=== PATIENT | female | born 1940 | race American Indian/Alaskan Native ===

== ENCOUNTER 2017-10-14 08:17 | Inpatient (IN) | payer MEDICARE ==
[2017-10-14] MEDS ORDERED: NACL 0.9% 1000 ML 1,000 ML ONE (08:50)
[2017-10-14] MEDS ORDERED: NACL 0.9% 1000 ML 1,000 ML IV ONE ×2 (09:10→11:16)
[2017-10-14 09:59] LABS: Hematocrit 33.9 % (30.3-42.9); Mean Corpuscular HGB Conc 32 % (30-34); Mean Corpuscular Hemoglobin 32 pg (28-32); Mean Corpuscular Volume 98 fl (79-97); Platelet Count 135 K/mm3 (140-440); Red Blood Count 3.47 M/mm3 (3.65-5.03); Red Cell Distribution Width 14.6 % (13.2-15.2)
[2017-10-14 10:14] LABS: Calcium 7.3 mg/dL (8.4-10.2)
[2017-10-14] MEDS ORDERED: ZOFRAN IV ONE (10:36)
[2017-10-14] MEDS ORDERED: D50W (25GM) Syringe IV PRN ×3 (10:36→11:44)
[2017-10-14] MEDS ORDERED: SODIUM CHLORIDE FLUSH SYRINGE 10 ML IV NR (11:00)
[2017-10-14] MEDS ORDERED: D5W/0.45% NACL/KCL 20 MEQ 20 MEQ/1,000 ML BAG IV SCH (11:00)
--- NOTE | 2017-10-14 11:38 | Emergency Department Report ---
ED General Adult HPI - General Chief complaint: Hyperglycemia Stated complaint: HYPERGLYCEMIA Time Seen by Provider: 10/14/17 09:09 Source: patient, family, EMS Mode of arrival: Stretcher Limitations: No Limitations - History of Present Illness Initial comments: Patient is a 76-year-old female who presents with weakness and hyperglycemia. Patient states that the last week heart she was weaned off of her insulin. 3 days ago she was seen at another ER for hyperglycemia she was given IV fluids and discharged home. Patient's daughter brought her in today because of increased weakness patient feels as though she was going to pass out. Patient is denying any current nausea vomiting however she did vomit several times yesterday. Patient denies chest pain fever cough dysuria diarrhea so throat at this time. Patient is only on metformin currently for her diabetes. -: Gradual, week(s) (1) Severity scale (0 -10): 0 Associated Symptoms: malaise, nausea/vomiting, weakness. denies: confusion, chest pain, cough, headaches, rash, seizure, shortness of breath, syncope - Related Data Home Medications Medication Instructions Recorded Confirmed Last Taken Aspirin [Aspirin BABY CHEW TAB] 81 mg PO DAILY 12/25/13 10/14/17 10/13/17 Clopidogrel Bisulfate [Clopidogrel] 75 mg PO DAILY 12/25/13 10/14/17 10/13/17 Hydrochlorothiazide [HCTZ] 25 mg PO DAILY 12/25/13 10/14/17 10/13/17 Metoprolol [Lopressor TAB] 50 mg PO BID 12/25/13 10/14/17 10/13/17 Doxazosin Mesylate [Cardura] 2 mg PO BID 10/14/17 10/14/17 10/13/17 ISOSORBIDE MONOnitrate [Imdur ER] 60 mg PO QDAY 10/14/17 10/14/17 10/13/17 Levothyroxine [Synthroid] 100 mcg PO DAILY 10/14/17 10/14/17 10/13/17 Metformin HCl [Glucophage] 1,000 mg PO QDAY 10/14/17 10/14/17 10/13/17 NIFEdipine [Nifedipine ER] 60 mg PO QDAY 10/14/17 10/14/17 10/13/17 Potassium Chloride [K-Dur] 20 meq PO DAILY 10/14/17 10/14/17 10/13/17 Simvastatin [Zocor TAB] 20 mg PO DAILY 10/14/17 10/14/17 10/13/17 Valsartan [Diovan] 320 mg PO DAILY 10/14/17 10/14/17 10/13/17 Allergies Allergy/AdvReac Type Severity Reaction Status Date / Time codeine Allergy Vomiting Verified 06/18/14 14:59 ED Review of Systems ROS: Stated complaint: HYPERGLYCEMIA Other details as noted in HPI Comment: All other systems reviewed and negative ED Past Medical Hx - Past Medical History Previous Medical History?: Yes Hx Hypertension: Yes Hx Heart Attack/AMI: Yes Hx Diabetes: Yes Hx GERD: Yes Additional medical history: Hypothyroidism, coronary artery disease - Surgical History Past Surgical History?: Yes Hx Open Heart Surgery: Yes (2007) Additional Surgical History: Hysterectomy - Social History Smoking Status: Never Smoker Substance Use Type: None - Medications Home Medications: Home Medications Medication Instructions Recorded Confirmed Last Taken Type Aspirin [Aspirin BABY CHEW TAB] 81 mg PO DAILY 12/25/13 10/14/17 10/13/17 History Clopidogrel Bisulfate [Clopidogrel] 75 mg PO DAILY 12/25/13 10/14/17 10/13/17 History Hydrochlorothiazide [HCTZ] 25 mg PO DAILY 12/25/13 10/14/17 10/13/17 History Metoprolol [Lopressor TAB] 50 mg PO BID 12/25/13 10/14/17 10/13/17 History Doxazosin Mesylate [Cardura] 2 mg PO BID 10/14/17 10/14/17 10/13/17 History ISOSORBIDE MONOnitrate [Imdur ER] 60 mg PO QDAY 10/14/17 10/14/17 10/13/17 History Levothyroxine [Synthroid] 100 mcg PO DAILY 10/14/17 10/14/17 10/13/17 History Metformin HCl [Glucophage] 1,000 mg PO QDAY 10/14/17 10/14/17 10/13/17 History NIFEdipine [Nifedipine ER] 60 mg PO QDAY 10/14/17 10/14/17 10/13/17 History Potassium Chloride [K-Dur] 20 meq PO DAILY 10/14/17 10/14/17 10/13/17 History Simvastatin [Zocor TAB] 20 mg PO DAILY 10/14/17 10/14/1718 History Valsartan [Diovan] 320 mg PO DAILY 10/14/17 10/14/17 10/13/17 History ED Physical Exam - General Limitations: No Limitations General appearance: alert, in no apparent distress, other (patient appears pale) - Head Head exam: Present: atraumatic, normocephalic - Eye Eye exam: Present: normal appearance - ENT ENT exam: Present: mucous membranes moist - Neck Neck exam: Present: normal inspection - Respiratory Respiratory exam: Present: normal lung sounds bilaterally. Absent: respiratory distress, wheezes, rales, rhonchi, stridor - Cardiovascular Cardiovascular Exam: Present: regular rate, normal rhythm, normal heart sounds. Absent: systolic murmur, diastolic murmur, rubs, gallop - GI/Abdominal GI/Abdominal exam: Present: soft, normal bowel sounds. Absent: distended, guarding, rebound - Extremities Exam Extremities exam: Present: normal inspection - Back Exam Back exam: Present: normal inspection - Neurological Exam Neurological exam: Present: alert, oriented X3 - Psychiatric Psychiatric exam: Present: normal affect, normal mood - Skin Skin exam: Present: warm, dry, intact, normal color. Absent: rash ED Course Vital Signs 10/14/17 10/14/17 10/14/17 08:34 08:35 08:40 Temperature Pulse Rate 67 67 Respiratory 17 14 Rate Blood Pressure Blood Pressure [Left] O2 Sat by Pulse Oximetry 10/14/17 10/14/17 10/14/17 08:45 09:01 09:05 Temperature 97.5 F L Pulse Rate 68 70 73 Respiratory 20 14 16 Rate Blood Pressure 96/38 93/44 Blood Pressure 94/40 [Left] O2 Sat by Pulse 99 Oximetry 10/14/17 10/14/17 09:15 09:30 Temperature Pulse Rate 57 L 65 Respiratory 13 16 Rate Blood Pressure 82/34 67/37 Blood Pressure [Left] O2 Sat by Pulse Oximetry - Reevaluation(s) Reevaluation #1: 10/14/17 12:57 Patient is a 76-year-old female who is presenting with hypoglycemia. Patient noted to be in DKA with a pH of 7.1. Patient's blood pressure only had minimal response to IV fluids. Patient will be started on dopamine central line in place in the right IJ please see procedure note. Patient also started on insulin drip and will continue fluids. Patient is noted to have a low sodium level on labs this will be addressed with the IV fluids patient is alert and oriented is handling secretions and her airway fine. I do not believe the patient needs to be intubated at this time. Patient will be admitted to Dr. Michele GARNETT. - Central Line Placement Right IJ Time Out Performed: Yes Patient Placed on Monitor/Pulse Ox: Yes MD Prep: mask, gown, gloves Central Line Prep: Chlorhexidine scrub, sterile drapes applied Local Anesthesia Used: Lidocaine 1% Ultrasound Used for Placement: Yes Central Line Lumen Inserted: triple Bloods Obtained for Lab: Yes Central Line Position: good blood return, all ports aspirated, flus, other Dressing Applied: Tegaderm Patient Tolerated Procedure: no complications Complications: none ED Medical Decision Making - Lab Data Result diagrams: 10/14/17 09:37 10/14/17 Unknown Lab Results 10/14/17 10/14/17 10/14/17 Range/Units 08:42 09:37 09:37 WBC 9.1 (4.5-11.0) K/mm3 RBC 3.47 L (3.65-5.03) M/mm3 Hgb 11.0 (10.1-14.3) gm/dl Hct 33.9 (30.3-42.9) % MCV 98 H (79-97) fl MCH 32 (28-32) pg MCHC 32 (30-34) % RDW 14.6 (13.2-15.2) % Plt Count 135 L (140-440) K/mm3 Add Manual Diff Complete Total Counted 100 Seg Neutrophils % Wheel [employer] Operator Seg Neuts % (Manual) 92.0 H (40.0-70.0) % Band Neutrophils % 3.0 % Lymphocytes % (Manual) 4.0 L (13.4-35.0) % Reactive Lymphs % (Man) 0 % Monocytes % (Manual) 1.0 (0.0-7.3) % Eosinophils % (Manual) 0 (0.0-4.3) % Basophils % (Manual) 0 (0.0-1.8) % Metamyelocytes % 0 % Myelocytes % 0 % Promyelocytes % 0 % Blast Cells % 0 % Nucleated RBC % Not Reportable Seg Neutrophils # Man 8.4 H (1.8-7.7) K/mm3 Band Neutrophils # 0.3 K/mm3 Lymphocytes # (Manual) 0.4 L (1.2-5.4) K/mm3 Abs React Lymphs (Man) 0.0 K/mm3 Monocytes # (Manual) 0.1 (0.0-0.8) K/mm3 Eosinophils # (Manual) 0.0 (0.0-0.4) K/mm3 Basophils # (Manual) 0.0 (0.0-0.1) K/mm3 Metamyelocytes # 0.0 K/mm3 Myelocytes # 0.0 K/mm3 Promyelocytes # 0.0 K/mm3 Blast Cells # 0.0 K/mm3 WBC Morphology Not Reportable Hypersegmented Neuts Not Reportable Hyposegmented Neuts Not Reportable Hypogranular Neuts Not Reportable Smudge Cells Not Reportable Toxic Granulation Not Reportable Toxic Vacuolation Not Reportable Dohle Bodies Not Reportable Pelger-Huet Anomaly Not Reportable [place] Rods Not Reportable Platelet Estimate Not Reportable Clumped Platelets Not Reportable Plt Clumps, EDTA Not Reportable Large Platelets Not Reportable Giant Platelets Not Reportable Platelet Satelliting Not Reportable Plt Morphology Comment Not Reportable RBC Morphology Not Reportable Dimorphic RBCs Not Reportable Polychromasia Not Reportable Hypochromasia Not Reportable Poikilocytosis Not Reportable Anisocytosis Few Microcytosis Not Reportable Macrocytosis Not Reportable Spherocytes Not Reportable Pappenheimer Bodies Not Reportable Sickle Cells Not Reportable Target Cells Not Reportable Tear Drop Cells Not Reportable Ovalocytes Not Reportable Helmet Cells Not Reportable Heredia-Coppell Bodies Not Reportable [place] Rings Not Reportable [place] Cells Not Reportable Bite Cells Not Reportable Crenated Cell Not Reportable Elliptocytes Not Reportable Acanthocytes (Spur) Not Reportable Rouleaux Not Reportable Hemoglobin C Crystals Not Reportable Schistocytes Not Reportable Malaria parasites Not Reportable [place] Bodies Not Reportable Hem Pathologist Commnt No VBG pH (7.320-7.420) Sodium 115 L* (137-145) mmol/L Potassium 5.8 H (3.6-5.0) mmol/L Chloride 75.2 L (98-107) mmol/L Carbon Dioxide 12 L (22-30) mmol/L Anion Gap 34 mmol/L BUN 54 H (7-17) mg/dL Creatinine 2.5 H (0.7-1.2) mg/dL Estimated GFR 23 ml/min BUN/Creatinine Ratio 22 % Glucose 742 H* (65-100) mg/dL POC Glucose > 500 H (70-105) Calcium 7.3 L (8.4-10.2) mg/dL Phosphorus (2.5-4.5) mg/dL Magnesium (1.7-2.3) mg/dL 10/14/17 10/14/17 10/14/17 Range/Units 09:37 12:42 Unknown WBC (4.5-11.0) K/mm3 RBC (3.65-5.03) M/mm3 Hgb (10.1-14.3) gm/dl Hct (30.3-42.9) % MCV (79-97) fl MCH (28-32) pg MCHC (30-34) % RDW (13.2-15.2) % Plt Count (140-440) K/mm3 Add Manual Diff Total Counted Seg Neutrophils % Seg Neuts % (Manual) (40.0-70.0) % Band Neutrophils % % Lymphocytes % (Manual) (13.4-35.0) % Reactive Lymphs % (Man) % Monocytes % (Manual) (0.0-7.3) % Eosinophils % (Manual) (0.0-4.3) % Basophils % (Manual) (0.0-1.8) % Metamyelocytes % % Myelocytes % % Promyelocytes % % Blast Cells % % Nucleated RBC % Seg Neutrophils # Man (1.8-7.7) K/mm3 Band Neutrophils # K/mm3 Lymphocytes # (Manual) (1.2-5.4) K/mm3 Abs React Lymphs (Man) K/mm3 Monocytes # (Manual) (0.0-0.8) K/mm3 Eosinophils # (Manual) (0.0-0.4) K/mm3 Basophils # (Manual) (0.0-0.1) K/mm3 Metamyelocytes # K/mm3 Myelocytes # K/mm3 Promyelocytes # K/mm3 Blast Cells # K/mm3 WBC Morphology Hypersegmented Neuts Hyposegmented Neuts Hypogranular Neuts Smudge Cells Toxic Granulation Toxic Vacuolation Dohle Bodies Pelger-Huet Anomaly Marco Antonio Rods Platelet Estimate Clumped Platelets Plt Clumps, EDTA Large Platelets Giant Platelets Platelet Satelliting Plt Morphology Comment RBC Morphology Dimorphic RBCs Polychromasia Hypochromasia Poikilocytosis Anisocytosis Microcytosis Macrocytosis Spherocytes Pappenheimer Bodies Sickle Cells Target Cells Tear Drop Cells Ovalocytes Helmet Cells Heredia-Coppell Bodies [place] Rings Estela Cells Bite Cells Crenated Cell Elliptocytes Acanthocytes (Spur) Rouleaux Hemoglobin C Crystals Schistocytes Malaria parasites [place] Bodies Hem Pathologist Commnt VBG pH 7.199 L* (7.320-7.420) Sodium (137-145) mmol/L Potassium (3.6-5.0) mmol/L Chloride (98-107) mmol/L Carbon Dioxide (22-30) mmol/L Anion Gap mmol/L BUN (7-17) mg/dL Creatinine (0.7-1.2) mg/dL Estimated GFR ml/min BUN/Creatinine Ratio % Glucose (65-100) mg/dL POC Glucose > 500 H (70-105) Calcium (8.4-10.2) mg/dL Phosphorus 6.20 H (2.5-4.5) mg/dL Magnesium 1.40 L (1.7-2.3) mg/dL 10/14/17 Range/Units Unknown WBC (4.5-11.0) K/mm3 RBC (3.65-5.03) M/mm3 Hgb (10.1-14.3) gm/dl Hct (30.3-42.9) % MCV (79-97) fl MCH (28-32) pg MCHC (30-34) % RDW (13.2-15.2) % Plt Count (140-440) K/mm3 Add Manual Diff Total Counted Seg Neutrophils % Seg Neuts % (Manual) (40.0-70.0) % Band Neutrophils % % Lymphocytes % (Manual) (13.4-35.0) % Reactive Lymphs % (Man) % Monocytes % (Manual) (0.0-7.3) % Eosinophils % (Manual) (0.0-4.3) % Basophils % (Manual) (0.0-1.8) % Metamyelocytes % % Myelocytes % % Promyelocytes % % Blast Cells % % Nucleated RBC % Seg Neutrophils # Man (1.8-7.7) K/mm3 Band Neutrophils # K/mm3 Lymphocytes # (Manual) (1.2-5.4) K/mm3 Abs React Lymphs (Man) K/mm3 Monocytes # (Manual) (0.0-0.8) K/mm3 Eosinophils # (Manual) (0.0-0.4) K/mm3 Basophils # (Manual) (0.0-0.1) K/mm3 Metamyelocytes # K/mm3 Myelocytes # K/mm3 Promyelocytes # K/mm3 Blast Cells # K/mm3 WBC Morphology Hypersegmented Neuts Hyposegmented Neuts Hypogranular Neuts Smudge Cells Toxic Granulation Toxic Vacuolation Dohle Bodies Pelger-Huet Anomaly Marco Antonio Rods Platelet Estimate Clumped Platelets Plt Clumps, EDTA Large Platelets Giant Platelets Platelet Satelliting Plt Morphology Comment RBC Morphology Dimorphic RBCs Polychromasia Hypochromasia Poikilocytosis Anisocytosis Microcytosis Macrocytosis Spherocytes Pappenheimer Bodies Sickle Cells Target Cells Tear Drop Cells Ovalocytes Helmet Cells Heredia-Coppell Bodies [place] Rings Estela Cells Bite Cells Crenated Cell Elliptocytes Acanthocytes (Spur) Rouleaux Hemoglobin C Crystals Schistocytes Malaria parasites [place] Bodies Hem Pathologist Commnt VBG pH (7.320-7.420) Sodium 119 L* (137-145) mmol/L Potassium 6.5 H* (3.6-5.0) mmol/L Chloride 79.4 L (98-107) mmol/L Carbon Dioxide 10 L (22-30) mmol/L Anion Gap 34 mmol/L BUN 57 H (7-17) mg/dL Creatinine 2.5 H (0.7-1.2) mg/dL Estimated GFR 23 ml/min BUN/Creatinine Ratio 23 % Glucose 723 H* (65-100) mg/dL POC Glucose (70-105) Calcium 6.8 L (8.4-10.2) mg/dL Phosphorus (2.5-4.5) mg/dL Magnesium (1.7-2.3) mg/dL - EKG Data EKG shows normal: sinus rhythm (rate is 67), axis (normal), intervals (normal), QRS complexes (normal), ST-T waves (normal) Rate: normal Critical care attestation.: If time is entered above; I have spent that time in minutes in the direct care of this critically ill patient, excluding procedure time. ED Disposition Clinical Impression: DKA (diabetic ketoacidoses), Shock, Dehydration, Hyponatremia Disposition: OP ADMIT IP TO THIS HOSP Is pt being admited?: Yes Does the pt Need Aspirin: No Condition: Serious
[2017-10-14 11:41] LABS: Band Neutrophils # (Manual) 0.3 K/mm3; Basophils % (Manual) 0 % (0.0-1.8); Eosinophils % (Manual) 0 % (0.0-4.3); Total Cells Counted 100
[2017-10-14 11:42] LABS: Anisocytosis Few
--- NOTE | 2017-10-14 11:42 | History and Physical Report ---
History of Present Illness Chief complaint: My blood sugar is high, and i feel sick History of present illness: 76 YO Female with DM, HTN, [place], GERD, Hypothyroidism,CAD S/P CABG presents to ED for evaluation. Pt states that her blood glucose has been high for the past 3 days. Pt is confused and unable to provide detailed history, but history is provided by daughter, who is at bedside during exam and interview. As per daughter, patient has recently started a new diet, and has not been taking her medication as prescribed. As per daughter, the patient was feeling weak and dizzy today and felt like she was going to pass out. No reports of fever, chills , CP, Palpitation, NVD, Syncope, BRBPR, Productive cough, leg swelling, calf pain, prolonged travel/immobility, individual/family history of DVT/PE. Pt seen and evaluated in ED and found to have DKA, complicated by hypotension. Pt initiated on IV pressor support and admitted to ICU. Past History Past Medical History: acute [place], CAD, diabetes, GERD, hypertension, hypothyroidism Past Surgical History: CABG Social history: . denies: smoking, alcohol abuse, prescription drug abuse Family history: diabetes, hypertension Medications and Allergies Allergies Allergy/AdvReac Type Severity Reaction Status Date / Time codeine Allergy Vomiting Verified 06/18/14 14:59 Home Medications Medication Instructions Recorded Confirmed Last Taken Type Aspirin [Aspirin BABY CHEW TAB] 81 mg PO DAILY 12/25/13 10/14/17 10/13/17 History Clopidogrel Bisulfate [Clopidogrel] 75 mg PO DAILY 12/25/13 10/14/17 10/13/17 History Hydrochlorothiazide [HCTZ] 25 mg PO DAILY 12/25/13 10/14/17 10/13/17 History Metoprolol [Lopressor TAB] 50 mg PO BID 12/25/13 10/14/17 10/13/17 History Doxazosin Mesylate [Cardura] 2 mg PO BID 10/14/17 10/14/17 10/13/17 History ISOSORBIDE MONOnitrate [Imdur ER] 60 mg PO QDAY 10/14/17 10/14/17 10/13/17 History Levothyroxine [Synthroid] 100 mcg PO DAILY 10/14/17 10/14/17 10/13/17 History Metformin HCl [Glucophage] 1,000 mg PO QDAY 10/14/17 10/14/17 10/13/17 History NIFEdipine [Nifedipine ER] 60 mg PO QDAY 10/14/17 10/14/17 10/13/17 History Potassium Chloride [K-Dur] 20 meq PO DAILY 10/14/17 10/14/17 10/13/17 History Simvastatin [Zocor TAB] 20 mg PO DAILY 10/14/17 10/14/17 10/13/17 History Valsartan [Diovan] 320 mg PO DAILY 10/14/17 10/14/17 10/13/17 History Active Meds: Active Medications Dextrose (D50w (25gm) Syringe) 0 ml IV PRN PRN PRN Reason: Hypoglycemia Potassium Chloride/Dextrose/Sod Cl (D5w/0.45% Nacl/Kcl 20 Meq) 20 meq in 1,000 mls @ 125 mls/hr IV DIRECT RAFFAELE Insulin Human Regular 100 (units/ Sodium Chloride) 100 mls @ 1 mls/hr IV TITR RAFFAELE; 1 UNITS/HR PRN Reason: Protocol Sodium Chloride (Nacl 0.9% 1000 Ml) 1,000 mls @ 250 mls/hr IV ONCE ONE Stop: 10/14/17 15:15 Sodium Chloride (Sodium Chloride Flush Syringe 10 Ml) 10 ml IV PRN NR Stop: 10/24/17 10:59 Review of Systems ROS unobtainable: due to mental status Exam - Constitutional Vitals: Temp Pulse Resp BP Pulse Ox 97.5 F L 65 16 67/37 99 10/14/17 09:05 10/14/17 09:30 10/14/17 09:30 10/14/17 09:30 10/14/17 09:05 General appearance: Present: mild distress - EENT Eyes: Present: PERRL ENT: hearing intact, clear oral mucosa - Neck Neck: Present: supple, normal ROM - Respiratory Respiratory effort: normal Respiratory: bilateral: diminished - Cardiovascular Heart Sounds: Present: S1 & S2. Absent: rub, click - Extremities Extremities: pulses symmetrical, No edema Peripheral Pulses: within normal limits - Abdominal General gastrointestinal: Present: soft, non-tender, non-distended, normal bowel sounds Female genitourinary: Present: normal - Integumentary Integumentary: Present: clear, dry, clammy, decreased turgor - Musculoskeletal Musculoskeletal: generalized weakness - Psychiatric Psychiatric: no intact judgment & insight, no memory intact - Neurologic Neurologic: no focal deficits, no gait normal Results - Labs CBC & Chem 7: 10/14/17 09:37 10/14/17 Unknown Labs: Abnormal lab results 10/14/17 10/14/17 10/14/17 Range/Units 08:42 09:37 09:37 RBC 3.47 L (3.65-5.03) M/mm3 MCV 98 H (79-97) fl Plt Count 135 L (140-440) K/mm3 VBG pH (7.320-7.420) Sodium 115 L* (137-145) mmol/L Potassium 5.8 H (3.6-5.0) mmol/L Chloride 75.2 L (98-107) mmol/L Carbon Dioxide 12 L (22-30) mmol/L BUN 54 H (7-17) mg/dL Creatinine 2.5 H (0.7-1.2) mg/dL Glucose 742 H* (65-100) mg/dL POC Glucose > 500 H (70-105) Calcium 7.3 L (8.4-10.2) mg/dL 10/14/17 Range/Units 09:37 RBC (3.65-5.03) M/mm3 MCV (79-97) fl Plt Count (140-440) K/mm3 VBG pH 7.199 L* (7.320-7.420) Sodium (137-145) mmol/L Potassium (3.6-5.0) mmol/L Chloride (98-107) mmol/L Carbon Dioxide (22-30) mmol/L BUN (7-17) mg/dL Creatinine (0.7-1.2) mg/dL Glucose (65-100) mg/dL POC Glucose (70-105) Calcium (8.4-10.2) mg/dL Assessment and Plan - Patient Problems (1) DKA (diabetic ketoacidoses) Current Visit: Yes Status: Acute Plan to address problem: DKA protocol: Insulin drip, serial bmp, monitor uop q shift, monitor anion gap, IVF resuscitation, The high probability of a clinically significant, sudden or life threatening deterioration of the [Endocrine, renal, cardiac, pulmonary] system(s) required my full and direct attention, intervention and personal management. The aggregate critical care time was [65] minutes. This time is in addition to time spent performing reported procedures but includes the following: [x] Data Review and interpretation [x] Patient assessment and monitoring of vital signs [x] Documentation [x] Medication orders and management (2) ARF (acute renal failure) Current Visit: Yes Status: Acute Plan to address problem: IVR resuscitation, monitor uop q shift, serial bmp to monitor serum creatnine, urine electrolytes, urine protein/creatnine ratio. (3) Hyponatremia syndrome Current Visit: Yes Status: Acute Plan to address problem: IVF resuscitation, repeat bmp (4) Encephalopathy Current Visit: Yes Status: Acute Plan to address problem: CT head, supportive care, neuro checks, aspiration precautions, (5) DVT prophylaxis Current Visit: Yes Status: Acute Plan to address problem: SCD to BLE while in bed
[2017-10-14] MEDS ORDERED: ALUM-MAG HYDROX-SIMETH 200-200-20MG/5ML PO PRN (11:44)
[2017-10-14] MEDS ORDERED: MILK OF MAGNESIA PO PRN (11:44)
[2017-10-14] MEDS ORDERED: DULCOLAX PR PRN (11:44)
[2017-10-14] MEDS ORDERED: PROVENTIL IH PRN (11:44)
[2017-10-14 12:00] LABS: Calcium 6.8 mg/dL (8.4-10.2); Magnesium 1.4 mg/dL (1.7-2.3)
[2017-10-14] MEDS ORDERED: NovoLIN R 100 UNITS in NACL 0.9% 99 ML IV SCH (12:00)
[2017-10-14] MEDS: NovoLIN R 100 UNITS in NACL 0.9% 99 ML IV SCH (12:59)
[2017-10-14] MEDS: INTROPIN DRIP 800 MG/D5W 250 ML 800 MG/250 ML BAG IV ONE ×2 (13:09→14:58)
[2017-10-14 15:27] LABS: Magnesium 1.5 mg/dL (1.7-2.3)
[2017-10-14 15:28] LABS: Calcium 6.6 mg/dL (8.4-10.2)
[2017-10-14 20:29] LABS: Calcium 7.1 mg/dL (8.4-10.2)
[2017-10-14 22:11] LABS: Bacteria,Urine 1+ /HPF (Negative); Bilirubin,Urine NEG (Negative); Blood,Urine SM (Negative); Color,Urine Straw (Yellow); Mucus,Urine FEW /HPF; Nitrite,Urine NEG (Negative); Protein,Urine <15 mg/dL mg/dL (Negative); Urobilinogen,Urine < 2.0 mg/dL (<2.0)
[2017-10-15 03:36] LABS: Calcium 7.6 mg/dL (8.4-10.2)
[2017-10-15] MEDS: NovoLIN R 100 UNITS in NACL 0.9% 99 ML IV SCH (05:23)
[2017-10-15] MEDS: INTROPIN DRIP 800 MG/D5W 250 ML 800 MG/250 ML BAG IV ONE (06:21)
[2017-10-15 06:26] LABS: Calcium 7.7 mg/dL (8.4-10.2)
[2017-10-15 10:59] LABS: BUN/Creatinine Ratio 26; Blood Urea Nitrogen 26 mg/dL (7-17); Calcium 7.6 mg/dL (8.4-10.2); Hemolysis Index 5
[2017-10-15] MEDS ORDERED: NS 0.45/KCL 20MEQ 20 MEQ/1,000 ML BAG IV SCH (13:00)
[2017-10-15 13:38] LABS: BUN/Creatinine Ratio 26; Blood Urea Nitrogen 23 mg/dL (7-17); Calcium 7.7 mg/dL (8.4-10.2); Hemolysis Index 6
--- NOTE | 2017-10-15 15:44 | Consultation ---
History of Present Illness - Reason for Consult Consult date: 10/15/17 DKA Requesting physician: JOSE ALBERTO FORRESTER - History of Present Illness 76 y/o female admitted with DKA. Anion Gap has closed. Past History Past Medical History: acute [place], CAD, diabetes, GERD, hypertension, hypothyroidism Past Surgical History: CABG Social history: . denies: smoking, alcohol abuse, prescription drug abuse Family history: diabetes, hypertension Medications and Allergies Allergies Allergy/AdvReac Type Severity Reaction Status Date / Time codeine Allergy Vomiting Verified 06/18/14 14:59 Home Medications Medication Instructions Recorded Confirmed Last Taken Type Aspirin [Aspirin BABY CHEW TAB] 81 mg PO DAILY 12/25/13 10/14/17 10/13/17 History Clopidogrel Bisulfate [Clopidogrel] 75 mg PO DAILY 12/25/13 10/14/17 10/13/17 History Hydrochlorothiazide [HCTZ] 25 mg PO DAILY 12/25/13 10/14/17 10/13/17 History Metoprolol [Lopressor TAB] 50 mg PO BID 12/25/13 10/14/17 10/13/17 History Doxazosin Mesylate [Cardura] 2 mg PO BID 10/14/17 10/14/17 10/13/17 History ISOSORBIDE MONOnitrate [Imdur ER] 60 mg PO QDAY 10/14/17 10/14/17 10/13/17 History Levothyroxine [Synthroid] 100 mcg PO DAILY 10/14/17 10/14/17 10/13/17 History Metformin HCl [Glucophage] 1,000 mg PO QDAY 10/14/17 10/14/17 10/13/17 History NIFEdipine [Nifedipine ER] 60 mg PO QDAY 10/14/17 10/14/17 10/13/17 History Potassium Chloride [K-Dur] 20 meq PO DAILY 10/14/17 10/14/17 10/13/17 History Simvastatin [Zocor TAB] 20 mg PO DAILY 10/14/17 10/14/17 10/13/17 History Valsartan [Diovan] 320 mg PO DAILY 10/14/17 10/14/17 10/13/17 History Active Meds: Active Medications Al Hydrox/Mg Hydrox/Simethicone (Alum-Mag Hydrox-Simeth [id number]/5ml) 30 ml PO Q4H PRN PRN Reason: Indigestion Albuterol (Proventil) 2.5 mg IH Q3HRT PRN PRN Reason: Shortness Of Breath Aspirin (Baby Aspirin) 81 mg PO DAILY [facility] Bisacodyl (Dulcolax) 10 mg OH QDAY PRN PRN Reason: constipation unrelieved by MOM Clopidogrel Bisulfate (Plavix) 75 mg PO DAILY [facility] Dextrose (D50w (25gm) Syringe) 0 ml IV PRN PRN PRN Reason: Hypoglycemia Dextrose (D50w (25gm) Syringe) 0 ml IV PRN PRN PRN Reason: Hypoglycemia Dextrose (D50w (25gm) Syringe) 0 ml IV ONCE PRN PRN Reason: Hypoglycemia Dopamine HCl/Dextrose (Intropin Drip 800 Mg/D5w 250 Ml) 800 mg in 250 mls @ 6.188 mls/hr IV TITR ONE; 2 MCG/KG/MIN PRN Reason: Protocol Stop: 10/16/17 04:24 Last Titration: 10/15/17 10:07 Dose: 0 mcg/kg/min, 0 mls/hr Potassium Chloride/Sodium Chloride (Ns 0.45/Kcl 20meq) 20 meq in 1,000 mls @ 125 mls/hr IV DIRECT [facility] Stop: 10/17/17 20:59 Insulin Aspart (Novolog) 0 units SUB-Q ACHS [facility] PRN Reason: Protocol Insulin Detemir (Levemir) 10 units SUB-Q QHS [facility] Levothyroxine Sodium (Synthroid) 100 mcg PO DAILY [facility] Magnesium Hydroxide (Milk Of Magnesia) 30 ml PO Q4H PRN PRN Reason: Constipation Miscellaneous Medication (Simvastatin) 20 mg PO DAILY [facility] Sodium Chloride (Sodium Chloride Flush Syringe 10 Ml) 10 ml IV PRN NR Stop: 10/24/17 10:59 Exam - Constitutional Vitals: Temp Pulse Resp BP Pulse Ox 97.5 F L 92 H 19 120/53 100 10/14/17 09:05 10/15/17 14:15 10/15/17 14:15 10/15/17 14:15 10/15/17 14:15 Results - Labs CBC & Chem 7: 10/14/17 09:37 10/15/17 Unknown Labs: Abnormal lab results 10/14/17 10/14/17 10/14/17 Range/Units 11:23 11:23 16:17 Sodium 119 L* (137-145) mmol/L Potassium 6.5 H* (3.6-5.0) mmol/L Chloride 79.4 L (98-107) mmol/L Carbon Dioxide 10 L (22-30) mmol/L BUN 57 H (7-17) mg/dL Creatinine 2.5 H (0.7-1.2) mg/dL Glucose 723 H* (65-100) mg/dL POC Glucose > 500 H (70-105) Calcium 6.8 L (8.4-10.2) mg/dL Phosphorus 6.20 H (2.5-4.5) mg/dL Magnesium 1.40 L (1.7-2.3) mg/dL 10/14/17 10/14/17 10/14/17 Range/Units 17:15 18:34 19:48 Sodium (137-145) mmol/L Potassium (3.6-5.0) mmol/L Chloride (98-107) mmol/L Carbon Dioxide (22-30) mmol/L BUN (7-17) mg/dL Creatinine (0.7-1.2) mg/dL Glucose (65-100) mg/dL POC Glucose > 500 H > 500 H 386 H (70-105) Calcium (8.4-10.2) mg/dL Phosphorus (2.5-4.5) mg/dL Magnesium (1.7-2.3) mg/dL 10/14/17 10/14/17 10/14/17 Range/Units 20:02 21:02 22:32 Sodium 124 L (137-145) mmol/L Potassium (3.6-5.0) mmol/L Chloride 86.8 L (98-107) mmol/L Carbon Dioxide 14 L (22-30) mmol/L BUN 55 H (7-17) mg/dL Creatinine 2.3 H (0.7-1.2) mg/dL Glucose 421 H (65-100) mg/dL POC Glucose 332 H 319 H (70-105) Calcium 7.1 L (8.4-10.2) mg/dL Phosphorus (2.5-4.5) mg/dL Magnesium (1.7-2.3) mg/dL 10/14/17 10/15/17 10/15/17 Range/Units 23:39 00:50 02:12 Sodium (137-145) mmol/L Potassium (3.6-5.0) mmol/L Chloride (98-107) mmol/L Carbon Dioxide (22-30) mmol/L BUN (7-17) mg/dL Creatinine (0.7-1.2) mg/dL Glucose (65-100) mg/dL POC Glucose 258 H 226 H 196 H (70-105) Calcium (8.4-10.2) mg/dL Phosphorus (2.5-4.5) mg/dL Magnesium (1.7-2.3) mg/dL 10/15/17 10/15/17 10/15/17 Range/Units 03:29 05:34 05:35 Sodium 130 L (137-145) mmol/L Potassium 3.4 L (3.6-5.0) mmol/L Chloride 93.2 L (98-107) mmol/L Carbon Dioxide (22-30) mmol/L BUN 35 H (7-17) mg/dL Creatinine 1.3 H (0.7-1.2) mg/dL Glucose 154 H (65-100) mg/dL POC Glucose 169 H 156 H (70-105) Calcium 7.7 L (8.4-10.2) mg/dL Phosphorus (2.5-4.5) mg/dL Magnesium (1.7-2.3) mg/dL 10/15/17 10/15/17 10/15/17 Range/Units 06:46 08:07 09:17 Sodium (137-145) mmol/L Potassium (3.6-5.0) mmol/L Chloride (98-107) mmol/L Carbon Dioxide (22-30) mmol/L BUN (7-17) mg/dL Creatinine (0.7-1.2) mg/dL Glucose (65-100) mg/dL POC Glucose 157 H 145 H 145 H (70-105) Calcium (8.4-10.2) mg/dL Phosphorus (2.5-4.5) mg/dL Magnesium (1.7-2.3) mg/dL 10/15/17 10/15/17 10/15/17 Range/Units 10:21 10:28 11:28 Sodium 134 L (137-145) mmol/L Potassium 3.4 L (3.6-5.0) mmol/L Chloride 96.0 L (98-107) mmol/L Carbon Dioxide (22-30) mmol/L BUN 26 H (7-17) mg/dL Creatinine (0.7-1.2) mg/dL Glucose 141 H (65-100) mg/dL POC Glucose 134 H 149 H (70-105) Calcium 7.6 L (8.4-10.2) mg/dL Phosphorus (2.5-4.5) mg/dL Magnesium (1.7-2.3) mg/dL 10/15/17 10/15/17 10/15/17 Range/Units 12:58 13:00 Unknown Sodium 135 L 130 L (137-145) mmol/L Potassium 3.2 L 3.5 L D (3.6-5.0) mmol/L Chloride 96.7 L 93.2 L (98-107) mmol/L Carbon Dioxide (22-30) mmol/L BUN 23 H 40 H (7-17) mg/dL Creatinine 1.5 H (0.7-1.2) mg/dL Glucose 125 H 175 H (65-100) mg/dL POC Glucose 132 H (70-105) Calcium 7.7 L 7.6 L (8.4-10.2) mg/dL Phosphorus (2.5-4.5) mg/dL Magnesium (1.7-2.3) mg/dL Assessment and Plan 76 y/o female with DKA, now resolving. 1. Please transition off insulin drip and start long acting insulin 2. Feed patient 3. If tolerates PO, should be stable for transfer to floor. CCT 31 minutes.
[2017-10-15] MEDS: NOVOLOG SUB-Q SCH ×2 (16:57→21:53)
--- NOTE | 2017-10-15 18:53 | Progress Note ---
Assessment and Plan Assessment and plan: 76 YO Female with DM, HTN, [place], GERD, Hypothyroidism,CAD S/P CABG presented with hyperglycemia, confusion, altered mental status and hypotension , states that she saw some physician on the outside who put her on a plant-based and not based diets and told her to stop her insulins. After which she became very hyperglycemic and encephalopathic and tired confused. (DKA (diabetic ketoacidoses) Currently improved, we'll attempt to wean her off insulin drip and transitioned to subcutaneous insulin, continue IV fluids ARF (acute renal failure)/ATN Improving, continue IV fluids Hypovolemic shock Has been weaned off pressors, continue IV fluids Hyponatremia syndrome Improving, continue IV fluids Acute metabolic Encephalopathy Was due to DKA and hypotension, improved HTN urgency BP meds were held for hypovolemia -resume BP meds as now hypertensive Hypokalemia continue to replete The high probability of a clinically significant, sudden or life threatening deterioration of the [endocrine, CV] system(s) required my full and direct attention, intervention and personal management. The aggregate critical care time was [44] minutes. This time is in addition to time spent performing reported procedures but includes the following: [] Data Review and interpretation [] Patient assessment and monitoring of vital signs [] Documentation [] Medication orders and management History Interval history: Review of systems Constitutional: No fevers, no malaise, no joint pains CVS: No chest pain, no orthopnea, no dyspnea on exertion, no pedal edema GI: No abdominal pain, no diarrhea, no vomiting, no constipation Respiratory: No shortness of breath, no wheezing, no coughing Hospitalist Physical - Physical exam Narrative exam: General.: Appears well, no distress, nontoxic HEENT: Moist mucous membranes, extraocular muscles intact, no lymphadenopathy Neck: supple Cardiac: S1-S2 heard Lungs: clear to auscultation bilaterally Abdomen: soft , nontender, nondistended, bowel sounds positive Extremities: no edema clubbing or cyanosis Skin: no rash or lesions Neurologic: no gross focal deficits Psych: appropriate behavior, appropriate mood, corporative, judgment intact - Constitutional Vitals: Temp Pulse Resp BP Pulse Ox 97.5 F L 86 19 101/48 98 10/14/17 09:05 10/15/17 14:31 10/15/17 14:31 10/15/17 14:31 10/15/17 14:31 General appearance: Present: mild distress Results - Labs CBC & Chem 7: 10/14/17 09:37 10/16/17 08:23 Labs: Laboratory Last Values WBC 9.1 K/mm3 (4.5-11.0) 10/14/17 09:37 RBC 3.47 M/mm3 (3.65-5.03) L 10/14/17 09:37 Hgb 11.0 gm/dl (10.1-14.3) 10/14/17 09:37 Hct 33.9 % (30.3-42.9) 10/14/17 09:37 MCV 98 fl (79-97) H 10/14/17 09:37 MCH 32 pg (28-32) 10/14/17 09:37 MCHC 32 % (30-34) 10/14/17 09:37 RDW 14.6 % (13.2-15.2) 10/14/17 09:37 Plt Count 135 K/mm3 (140-440) L 10/14/17 09:37 Add Manual Diff Complete 10/14/17 09:37 Total Counted 100 10/14/17 09:37 Seg Neutrophils % Banking Services Officer 10/14/17 09:37 Seg Neuts % (Manual) 92.0 % (40.0-70.0) H 10/14/17 09:37 Band Neutrophils % 3.0 % 10/14/17 09:37 Lymphocytes % (Manual) 4.0 % (13.4-35.0) L 10/14/17 09:37 Reactive Lymphs % (Man) 0 % 10/14/17 09:37 Monocytes % (Manual) 1.0 % (0.0-7.3) 10/14/17 09:37 Eosinophils % (Manual) 0 % (0.0-4.3) 10/14/17 09:37 Basophils % (Manual) 0 % (0.0-1.8) 10/14/17 09:37 Metamyelocytes % 0 % 10/14/17 09:37 Myelocytes % 0 % 10/14/17 09:37 Promyelocytes % 0 % 10/14/17 09:37 Blast Cells % 0 % 10/14/17 09:37 Nucleated RBC % Not Reportable 10/14/17 09:37 Seg Neutrophils # Man 8.4 K/mm3 (1.8-7.7) H 10/14/17 09:37 Band Neutrophils # 0.3 K/mm3 10/14/17 09:37 Lymphocytes # (Manual) 0.4 K/mm3 (1.2-5.4) L 10/14/17 09:37 Abs React Lymphs (Man) 0.0 K/mm3 10/14/17 09:37 Monocytes # (Manual) 0.1 K/mm3 (0.0-0.8) 10/14/17 09:37 Eosinophils # (Manual) 0.0 K/mm3 (0.0-0.4) 10/14/17 09:37 Basophils # (Manual) 0.0 K/mm3 (0.0-0.1) 10/14/17 09:37 Metamyelocytes # 0.0 K/mm3 10/14/17 09:37 Myelocytes # 0.0 K/mm3 10/14/17 09:37 Promyelocytes # 0.0 K/mm3 10/14/17 09:37 Blast Cells # 0.0 K/mm3 10/14/17 09:37 WBC Morphology Not Reportable 10/14/17 09:37 Hypersegmented Neuts Not Reportable 10/14/17 09:37 Hyposegmented Neuts Not Reportable 10/14/17 09:37 Hypogranular Neuts Not Reportable 10/14/17 09:37 Smudge Cells Not Reportable 10/14/17 09:37 Toxic Granulation Not Reportable 10/14/17 09:37 Toxic Vacuolation Not Reportable 10/14/17 09:37 Dohle Bodies Not Reportable 10/14/17 09:37 Pelger-Huet Anomaly Not Reportable 10/14/17 09:37 Marco Antonio Rods Not Reportable 10/14/17 09:37 Platelet Estimate Not Reportable 10/14/17 09:37 Clumped Platelets Not Reportable 10/14/17 09:37 Plt Clumps, EDTA Not Reportable 10/14/17 09:37 Large Platelets Not Reportable 10/14/17 09:37 Giant Platelets Not Reportable 10/14/17 09:37 Platelet Satelliting Not Reportable 10/14/17 09:37 Plt Morphology Comment Not Reportable 10/14/17 09:37 RBC Morphology Not Reportable 10/14/17 09:37 Dimorphic RBCs Not Reportable 10/14/17 09:37 Polychromasia Not Reportable 10/14/17 09:37 Hypochromasia Not Reportable 10/14/17 09:37 Poikilocytosis Not Reportable 10/14/17 09:37 Anisocytosis Few 10/14/17 09:37 Microcytosis Not Reportable 10/14/17 09:37 Macrocytosis Not Reportable 10/14/17 09:37 Spherocytes Not Reportable 10/14/17 09:37 Pappenheimer Bodies Not Reportable 10/14/17 09:37 Sickle Cells Not Reportable 10/14/17 09:37 Target Cells Not Reportable 10/14/17 09:37 Tear Drop Cells Not Reportable 10/14/17 09:37 Ovalocytes Not Reportable 10/14/17 09:37 Helmet Cells Not Reportable 10/14/17 09:37 [place] Bodies Not Reportable 10/14/17 09:37 [place] Rings Not Reportable 10/14/17 09:37 Estela Cells Not Reportable 10/14/17 09:37 Bite Cells Not Reportable 10/14/17 09:37 Crenated Cell Not Reportable 10/14/17 09:37 Elliptocytes Not Reportable 10/14/17 09:37 Acanthocytes (Spur) Not Reportable 10/14/17 09:37 Rouleaux Not Reportable 10/14/17 09:37 Hemoglobin C Crystals Not Reportable 10/14/17 09:37 Schistocytes Not Reportable 10/14/17 09:37 Malaria parasites Not Reportable 10/14/17 09:37 Nile Bodies Not Reportable 10/14/17 09:37 Hem Pathologist Commnt No 10/14/17 09:37 VBG pH 7.199 (7.320-7.420) L* 10/14/17 09:37 Sodium 130 mmol/L (137-145) L 10/15/17 Unknown Potassium 3.5 mmol/L (3.6-5.0) L D 10/15/17 Unknown Chloride 93.2 mmol/L (98-107) L 10/15/17 Unknown Carbon Dioxide 22 mmol/L (22-30) D 10/15/17 Unknown Anion Gap 18 mmol/L 10/15/17 Unknown BUN 40 mg/dL (7-17) H 10/15/17 Unknown Creatinine 1.5 mg/dL (0.7-1.2) H 10/15/17 Unknown Estimated GFR 41 ml/min 10/15/17 Unknown BUN/Creatinine Ratio 27 % 10/15/17 Unknown Glucose 175 mg/dL (65-100) H 10/15/17 Unknown POC Glucose 132 (70-105) H 10/15/17 12:58 Calcium 7.6 mg/dL (8.4-10.2) L 10/15/17 Unknown Phosphorus 6.40 mg/dL (2.5-4.5) H 10/14/17 14:44 Magnesium 1.50 mg/dL (1.7-2.3) L 10/14/17 14:44 Urine Color Straw (Yellow) 10/14/17 21:47 Urine Turbidity Clear (Clear) 10/14/17 21:47 Urine pH 5.0 (5.0-7.0) 10/14/17 21:47 Ur Specific [place] 1.008 (1.003-1.030) 10/14/17 21:47 Urine Protein <15 mg/dl mg/dL (Negative) 10/14/17 21:47 Urine Glucose (UA) >=500 mg/dL (Negative) 10/14/17 21:47 Urine Ketones Tr mg/dL (Negative) 10/14/17 21:47 Urine Blood Sm (Negative) 10/14/17 21:47 Urine Nitrite Neg (Negative) 10/14/17 21:47 Urine Bilirubin Neg (Negative) 10/14/17 21:47 Urine Urobilinogen < 2.0 mg/dL (<2.0) 10/14/17 21:47 Ur Leukocyte Esterase Neg (Negative) 10/14/17 21:47 Urine WBC (Auto) 1.0 /HPF (0.0-6.0) 10/14/17 21:47 Urine RBC (Auto) 1.0 /HPF (0.0-6.0) 10/14/17 21:47 Urine Bacteria (Auto) 1+ /HPF (Negative) 10/14/17 21:47 Urine Mucus Few /HPF 10/14/17 21:47
[2017-10-15] MEDS: LEVEMIR SUB-Q SCH (21:51)
[2017-10-16] MEDS: NOVOLOG SUB-Q SCH ×4 (09:19→22:10)
[2017-10-16 09:30] LABS: BUN/Creatinine Ratio 19; Blood Urea Nitrogen 15 mg/dL (7-17); Calcium 8.3 mg/dL (8.4-10.2); Hemolysis Index 14
[2017-10-16] MEDS ORDERED: NON-FORMULARY (Doxazosin Mesylate [Cardura] 2 MG) PO SCH (10:00)
[2017-10-16] MEDS ORDERED: NON-FORMULARY (Simvastatin 20 MG) PO SCH (10:00)
[2017-10-16] MEDS ORDERED: NON-FORMULARY (Valsartan [Diovan] 320 MG) PO SCH (10:00)
[2017-10-16] MEDS: PLAVIX PO SCH (10:46)
[2017-10-16] MEDS: PROCARDIA XL PO SCH (10:46)
[2017-10-16] MEDS: SYNTHROID PO SCH (10:46)
[2017-10-16] MEDS: BABY ASPIRIN PO SCH (10:46)
[2017-10-16] MEDS: HCTZ PO SCH (10:46)
[2017-10-16] MEDS: CARDURA PO SCH ×2 (10:47→22:09)
[2017-10-16] MEDS: LOPRESSOR PO SCH ×2 (10:47→22:10)
[2017-10-16] MEDS: IMDUR PO SCH (10:47)
[2017-10-16] MEDS: DIOVAN PO SCH (11:03)
[2017-10-16] MEDS ORDERED: K-DUR PO ONE (12:30)
[2017-10-16] MEDS ORDERED: ROBITUSSIN PO PRN (16:30)
[2017-10-16] MEDS ORDERED: ZOCOR PO SCH (22:00)
[2017-10-16] MEDS: LEVEMIR SUB-Q SCH (22:09)
[2017-10-17 06:13] LABS: BUN/Creatinine Ratio 11; Blood Urea Nitrogen 9 mg/dL (7-17); Calcium 8.2 mg/dL (8.4-10.2); Hemolysis Index 6
[2017-10-17 08:56] VITALS: BP 141/74
[2017-10-17] MEDS: NOVOLOG SUB-Q SCH ×2 (09:39→13:09)
[2017-10-17] MEDS: CARDURA PO SCH (09:40)
[2017-10-17] MEDS: BABY ASPIRIN PO SCH (09:40)
[2017-10-17] MEDS: IMDUR PO SCH (09:41)
[2017-10-17] MEDS: HCTZ PO SCH (09:41)
[2017-10-17] MEDS: DIOVAN PO SCH (09:41)
[2017-10-17] MEDS: LOPRESSOR PO SCH (09:42)
[2017-10-17] MEDS: PLAVIX PO SCH (09:42)
[2017-10-17] MEDS: PROCARDIA XL PO SCH (09:42)
[2017-10-17] MEDS: SYNTHROID PO SCH (09:43)
--- NOTE | 2017-10-17 10:14 | Progress Note ---
Assessment and Plan Assessment and plan: 76 YO Female with DM, HTN, [place], GERD, Hypothyroidism,CAD S/P CABG presented with hyperglycemia, confusion, altered mental status and hypotension , states that she saw some physician on the outside who put her on a plant-based and not based diets and told her to stop her insulins. After which she became very hyperglycemic and encephalopathic and tired confused. (DKA (diabetic ketoacidoses) Currently improved, continue sub q insulins ARF (acute renal failure)/ATN Improving, continue IV fluids Hypovolemic shock Has been weaned off pressors, continue IV fluids Hyponatremia syndrome Improving, continue IV fluids Acute metabolic Encephalopathy Was due to DKA and hypotension, improved HTN urgency BP meds were held for hypovolemia -resume BP meds as now hypertensive Hypokalemia continue to replete History Interval history: Review of systems Constitutional: No fevers, no malaise, no joint pains CVS: No chest pain, no orthopnea, no dyspnea on exertion, no pedal edema GI: No abdominal pain, no diarrhea, no vomiting, no constipation Respiratory: No shortness of breath, no wheezing, no coughing Hospitalist Physical - Physical exam Narrative exam: General.: Appears well, no distress, nontoxic HEENT: Moist mucous membranes, extraocular muscles intact, no lymphadenopathy Neck: supple Cardiac: S1-S2 heard Lungs: clear to auscultation bilaterally Abdomen: soft , nontender, nondistended, bowel sounds positive Extremities: no edema clubbing or cyanosis Skin: no rash or lesions Neurologic: no gross focal deficits Psych: appropriate behavior, appropriate mood, corporative, judgment intact - Constitutional Vitals: Temp Pulse Resp BP Pulse Ox 99.0 F 66 16 141/74 98 10/17/17 07:51 10/17/17 09:59 10/17/17 07:51 10/17/17 09:42 10/17/17 07:51 General appearance: Present: mild distress Results - Labs CBC & Chem 7: 10/14/17 09:37 10/17/17 04:00 Labs: Laboratory Last Values WBC 9.1 K/mm3 (4.5-11.0) 10/14/17 09:37 RBC 3.47 M/mm3 (3.65-5.03) L 10/14/17 09:37 Hgb 11.0 gm/dl (10.1-14.3) 10/14/17 09:37 Hct 33.9 % (30.3-42.9) 10/14/17 09:37 MCV 98 fl (79-97) H 10/14/17 09:37 MCH 32 pg (28-32) 10/14/17 09:37 MCHC 32 % (30-34) 10/14/17 09:37 RDW 14.6 % (13.2-15.2) 10/14/17 09:37 Plt Count 135 K/mm3 (140-440) L 10/14/17 09:37 Add Manual Diff Complete 10/14/17 09:37 Total Counted 100 10/14/17 09:37 Seg Neutrophils % Safety Associate 10/14/17 09:37 Seg Neuts % (Manual) 92.0 % (40.0-70.0) H 10/14/17 09:37 Band Neutrophils % 3.0 % 10/14/17 09:37 Lymphocytes % (Manual) 4.0 % (13.4-35.0) L 10/14/17 09:37 Reactive Lymphs % (Man) 0 % 10/14/17 09:37 Monocytes % (Manual) 1.0 % (0.0-7.3) 10/14/17 09:37 Eosinophils % (Manual) 0 % (0.0-4.3) 10/14/17 09:37 Basophils % (Manual) 0 % (0.0-1.8) 10/14/17 09:37 Metamyelocytes % 0 % 10/14/17 09:37 Myelocytes % 0 % 10/14/17 09:37 Promyelocytes % 0 % 10/14/17 09:37 Blast Cells % 0 % 10/14/17 09:37 Nucleated RBC % Not Reportable 10/14/17 09:37 Seg Neutrophils # Man 8.4 K/mm3 (1.8-7.7) H 10/14/17 09:37 Band Neutrophils # 0.3 K/mm3 10/14/17 09:37 Lymphocytes # (Manual) 0.4 K/mm3 (1.2-5.4) L 10/14/17 09:37 Abs React Lymphs (Man) 0.0 K/mm3 10/14/17 09:37 Monocytes # (Manual) 0.1 K/mm3 (0.0-0.8) 10/14/17 09:37 Eosinophils # (Manual) 0.0 K/mm3 (0.0-0.4) 10/14/17 09:37 Basophils # (Manual) 0.0 K/mm3 (0.0-0.1) 10/14/17 09:37 Metamyelocytes # 0.0 K/mm3 10/14/17 09:37 Myelocytes # 0.0 K/mm3 10/14/17 09:37 Promyelocytes # 0.0 K/mm3 10/14/17 09:37 Blast Cells # 0.0 K/mm3 10/14/17 09:37 WBC Morphology Not Reportable 10/14/17 09:37 Hypersegmented Neuts Not Reportable 10/14/17 09:37 Hyposegmented Neuts Not Reportable 10/14/17 09:37 Hypogranular Neuts Not Reportable 10/14/17 09:37 Smudge Cells Not Reportable 10/14/17 09:37 Toxic Granulation Not Reportable 10/14/17 09:37 Toxic Vacuolation Not Reportable 10/14/17 09:37 Dohle Bodies Not Reportable 10/14/17 09:37 Pelger-Huet Anomaly Not Reportable 10/14/17 09:37 Marco Antonio Rods Not Reportable 10/14/17 09:37 Platelet Estimate Not Reportable 10/14/17 09:37 Clumped Platelets Not Reportable 10/14/17 09:37 Plt Clumps, EDTA Not Reportable 10/14/17 09:37 Large Platelets Not Reportable 10/14/17 09:37 Giant Platelets Not Reportable 10/14/17 09:37 Platelet Satelliting Not Reportable 10/14/17 09:37 Plt Morphology Comment Not Reportable 10/14/17 09:37 RBC Morphology Not Reportable 10/14/17 09:37 Dimorphic RBCs Not Reportable 10/14/17 09:37 Polychromasia Not Reportable 10/14/17 09:37 Hypochromasia Not Reportable 10/14/17 09:37 Poikilocytosis Not Reportable 10/14/17 09:37 Anisocytosis Few 10/14/17 09:37 Microcytosis Not Reportable 10/14/17 09:37 Macrocytosis Not Reportable 10/14/17 09:37 Spherocytes Not Reportable 10/14/17 09:37 Pappenheimer Bodies Not Reportable 10/14/17 09:37 Sickle Cells Not Reportable 10/14/17 09:37 Target Cells Not Reportable 10/14/17 09:37 Tear Drop Cells Not Reportable 10/14/17 09:37 Ovalocytes Not Reportable 10/14/17 09:37 Helmet Cells Not Reportable 10/14/17 09:37 [place]red[place] Bodies Not Reportable 10/14/17 09:37 [place] Rings Not Reportable 10/14/17 09:37 Estela Cells Not Reportable 10/14/17 09:37 Bite Cells Not Reportable 10/14/17 09:37 Crenated Cell Not Reportable 10/14/17 09:37 Elliptocytes Not Reportable 10/14/17 09:37 Acanthocytes (Spur) Not Reportable 10/14/17 09:37 Rouleaux Not Reportable 10/14/17 09:37 Hemoglobin C Crystals Not Reportable 10/14/17 09:37 Schistocytes Not Reportable 10/14/17 09:37 Malaria parasites Not Reportable 10/14/17 09:37 Nile Bodies Not Reportable 10/14/17 09:37 Hem Pathologist Commnt No 10/14/17 09:37 VBG pH 7.199 (7.320-7.420) L* 10/14/17 09:37 Sodium 140 mmol/L (137-145) 10/17/17 04:00 Potassium 3.7 mmol/L (3.6-5.0) 10/17/17 04:00 Chloride 99.4 mmol/L (98-107) 10/17/17 04:00 Carbon Dioxide 30 mmol/L (22-30) 10/17/17 04:00 Anion Gap 14 mmol/L 10/17/17 04:00 BUN 9 mg/dL (7-17) 10/17/17 04:00 Creatinine 0.8 mg/dL (0.7-1.2) 10/17/17 04:00 Estimated GFR > 60 ml/min 10/17/17 04:00 BUN/Creatinine Ratio 11 % 10/17/17 04:00 Glucose 139 mg/dL (65-100) H 10/17/17 04:00 POC Glucose 217 (70-105) H 10/16/17 21:56 Calcium 8.2 mg/dL (8.4-10.2) L 10/17/17 04:00 Phosphorus 6.40 mg/dL (2.5-4.5) H 10/14/17 14:44 Magnesium 1.50 mg/dL (1.7-2.3) L 10/14/17 14:44 Urine Color Straw (Yellow) 10/14/17 21:47 Urine Turbidity Clear (Clear) 10/14/17 21:47 Urine pH 5.0 (5.0-7.0) 10/14/17 21:47 Ur Specific [place] 1.008 (1.003-1.030) 10/14/17 21:47 Urine Protein <15 mg/dl mg/dL (Negative) 10/14/17 21:47 Urine Glucose (UA) >=500 mg/dL (Negative) 10/14/17 21:47 Urine Ketones Tr mg/dL (Negative) 10/14/17 21:47 Urine Blood Sm (Negative) 10/14/17 21:47 Urine Nitrite Neg (Negative) 10/14/17 21:47 Urine Bilirubin Neg (Negative) 10/14/17 21:47 Urine Urobilinogen < 2.0 mg/dL (<2.0) 10/14/17 21:47 Ur Leukocyte Esterase Neg (Negative) 10/14/17 21:47 Urine WBC (Auto) 1.0 /HPF (0.0-6.0) 10/14/17 21:47 Urine RBC (Auto) 1.0 /HPF (0.0-6.0) 10/14/17 21:47 Urine Bacteria (Auto) 1+ /HPF (Negative) 10/14/17 21:47 Urine Mucus Few /HPF 10/14/17 21:47
--- NOTE | 2017-10-17 10:19 | Discharge Summary ---
Providers - Providers Date of Admission: 10/14/17 11:44 Attending physician: MINGO KLEIN MD Primary care physician: SLIME FOFANA MD Hospitalization Condition: Serious Hospital course: 76 YO Female with DM, HTN, IN, GERD, Hypothyroidism,CAD S/P CABG presented with hyperglycemia, confusion, altered mental status and hypotension , states that she saw some physician on the outside who put her on a plant-based and not based diets and told her to stop her insulins. After which she became very hyperglycemic and encephalopathic and tired confused. She was treated with insulin drip and IV fluids, electrolytes were repleted, she clinically improved and was transitioned to subcutaneous insulin. She was counseled on the importance of taking her insulin. She verbalized understanding and stated that she would not stop insulin abruptly in the future unless instructed to by her primary care physician Discharge diagnoses (DKA (diabetic ketoacidoses) ARF (acute renal failure)/ATN Hypovolemic shock Hyponatremia syndrome Acute metabolic Encephalopathy HTN urgency Hypokalemia Disposition: TO HOME OR SELFCARE Time spent for discharge: 33 minutes Core Measure Documentation - Palliative Care Palliative Care/ Comfort Measures: Not Applicable - Core Measures Any of the following diagnoses?: none Exam - Constitutional Vitals: Temp Pulse Resp BP Pulse Ox 99.0 F 66 16 141/74 98 10/17/17 07:51 10/17/17 09:59 10/17/17 07:51 10/17/17 09:42 10/17/17 07:51 General appearance: Present: no acute distress, well-nourished - EENT Eyes: Present: PERRL ENT: hearing intact, clear oral mucosa - Neck Neck: Present: supple, normal ROM - Respiratory Respiratory effort: normal Respiratory: bilateral: CTA - Cardiovascular Heart Sounds: Present: S1 & S2. Absent: rub, click - Extremities Extremities: pulses symmetrical, No edema Peripheral Pulses: within normal limits - Abdominal General gastrointestinal: Present: soft, non-tender, non-distended, normal bowel sounds Female genitourinary: Present: normal - Integumentary Integumentary: Present: clear, warm, dry - Musculoskeletal Musculoskeletal: gait normal, strength equal bilaterally - Psychiatric Psychiatric: appropriate mood/affect, intact judgment & insight - Neurologic Neurologic: CNII-XII intact, moves all extremities Plan Follow up with: PRIMARY CARE, [Primary Care Provider] - 3-5 Days Prescriptions: Insulin Glargine [Lantus] 12 units SQ QHS #1 vial Clopidogrel [Plavix] 75 mg PO DAILY #30 tablet Hydrochlorothiazide [HCTZ] 25 mg PO DAILY #30 tablet Insulin Lispro [HumaLOG VIAL] 0 units SQ AC #1 vial
== END 2017-10-17 13:45 | disposition home or self-care (01) | DRG 637 ==
LOC: ED 08:17 → CC1 11:44 → 4A 10-15 13:50
PROVIDERS: ADMIT Internal Medicine; ATTEND Internal Medicine
PROC: 02HV33Z Insertion of Infusion Device into Superior Vena Cava, Percutaneous Approach (ICD-10-PCS; principal; 2017-10-14)
DX: E11.10 Type 2 diabetes mellitus with ketoacidosis without coma (principal); G93.41 Metabolic encephalopathy; N17.0 Acute kidney failure with tubular necrosis; E87.1 Hypo-osmolality and hyponatremia; I10 Essential (primary) hypertension; K21.9 Gastro-esophageal reflux disease without esophagitis; E03.9 Hypothyroidism, unspecified; I25.10 Atherosclerotic heart disease of native coronary artery without angina pectoris; I16.0 Hypertensive urgency; E87.6 Hypokalemia; E86.0 Dehydration; I25.2 Old myocardial infarction; Z95.1 Presence of aortocoronary bypass graft; Z79.82 Long term (current) use of aspirin; Z79.899 Other long term (current) drug therapy; Z88.5 Allergy status to narcotic agent; Z90.710 Acquired absence of both cervix and uterus; Z82.49 Family history of ischemic heart disease and other diseases of the circulatory system; Z83.3 Family history of diabetes mellitus
CPT/HCPCS: 36415; 80048; 81001; 82805; 82962; 83735; 84100; 85007; 85025; 93005; 93010; 96365; 96366; 96375; J1265; J1815; J1818; J2405; J7030